=== PATIENT | male | born 1980 | race Caucasian/White ===

== ENCOUNTER 2019-01-22 13:48 | Emergency (ER) | payer OTHER ==
[2019-01-22] MEDS ORDERED: traMADol HCl 50 MG TAB ONE (14:23)
[2019-01-22] MEDS ORDERED: Ketorolac Tromethamine 60 MG/2 ML VIAL ONE (14:24)
--- NOTE | 2019-01-22 14:54 | RAD ---
THREE VIEWS LEFT SHOULDER: Comparison: None. History: Left shoulder pain after a fall. FINDINGS: Three views of the left shoulder shows no evidence of acute fracture or dislocation. No degenerative changes are seen. No soft tissue swelling is seen. The visualized left thorax is unremarkable. IMPRESSION: No evidence of acute osseous abnormality. POS: [facility]
== END 2019-01-22 15:39 | disposition home or self-care (01) ==
LOC: SCSER 13:48
DX: S46.912A Strain of unspecified muscle, fascia and tendon at shoulder and upper arm level, left arm, initial encounter (principal); F17.290 Nicotine dependence, other tobacco product, uncomplicated; Z79.899 Other long term (current) drug therapy; W19.XXXA Unspecified fall, initial encounter
CPT/HCPCS: 96372; J1885